=== PATIENT | male | born 1985 | race Caucasian/White ===

== ENCOUNTER → 2018-11-12 23:18 | Emergency (ER) | payer BC ==
[2018-11-13 00:30] VITALS: BP 127/65
== END | disposition left against medical advice (07) ==
LOC: ED 23:18
DX: T36.95XA Adverse effect of unspecified systemic antibiotic, initial encounter (principal); Y92.9 Unspecified place or not applicable; Z53.21 Procedure and treatment not carried out due to patient leaving prior to being seen by health care provider